=== PATIENT | female | born 1945 | race African-American/Black ===

== ENCOUNTER 2016-11-19 10:07 | Day surgery (SDC) | payer OTHER ==
[2016-11-15 09:40] VITALS: BMI 37.3
[2016-11-19] MEDS ORDERED: PROPOFOL 20 ML ONE ×2 (10:34)
[2016-11-19] MEDS ORDERED: GLYCOPYRROLATE 0.2 MG/1 ML VIAL ONE (11:05)
[2016-11-19 12:03] VITALS: TEMP 98
[2016-11-19 12:48] VITALS: BP 140/72; PULSE 66
--- NOTE | 2016-11-20 16:20 | PATH ---
Surgical Pathology Report Patient Name: CECILIA GALEAS [facility]. Rec. #: [id number] /Age/Gender: 1945 (Age: 71) / F Account: [id number] Location: [facility] [place]ENDOSCOPY Taken: 11/19/2016 Received: 11/19/2016 Reported: 11/20/2016 Physicians: Eugene Wiseman M.D. Specimen(s) Received A: BX DUODENUM B: BX ANTRUM C: BX RECTUM Clinical History GI bleed Duodenitis, gastritis, colonic polyp Final Diagnosis A. DUODENUM, BIOPSY: DUODENAL MUCOSA WITH NO PATHOLOGIC FINDINGS. B. ANTRUM, BIOPSY: SEVERE CHRONIC ACTIVE GASTRITIS. IMMUNOSTAIN SHOWS NUMEROUS H. PYLORI ORGANISMS. C. RECTUM, BIOPSY: HYPERPLASTIC POLYP. Electronically Signed Candi Pardo M.D. Gross Description A. Received in formalin, labeled "duodenum" are 2 garcia, irregular portions of soft tissue measuring 0.1 and 0.4 cm. in greatest dimension. The specimens are submitted in toto in one cassette. B. Received in formalin, labeled "antrum" are 2 garcia, irregular portions of soft tissue averaging 0.4 cm. in greatest dimension. The specimens are submitted in toto in one cassette. C. Received in formalin, labeled "rectum" is a garcia, irregular portion of soft tissue measuring 0.3 cm. in greatest dimension. The specimen is submitted in toto in one cassette. 11/19/2016 saudi11/19/2016
== END 2016-11-19 12:30 | disposition home or self-care (01) ==
LOC: FASU-ENDO 10:07
PROVIDERS: ATTEND Internal Medicine Gastroenterology
PROC: 0DB68ZX Excision of Stomach, Via Natural or Artificial Opening Endoscopic, Diagnostic (ICD-10-PCS; 2016-11-19)
PROC: 0DBP8ZX Excision of Rectum, Via Natural or Artificial Opening Endoscopic, Diagnostic (ICD-10-PCS; principal; 2016-11-19 11:02)
PROC: 0DB98ZX Excision of Duodenum, Via Natural or Artificial Opening Endoscopic, Diagnostic (ICD-10-PCS; 2016-11-19 11:02)
DX: K92.1 Melena (principal); K62.1 Rectal polyp; K57.30 Diverticulosis of large intestine without perforation or abscess without bleeding; K29.80 Duodenitis without bleeding; K29.30 Chronic superficial gastritis without bleeding
CPT/HCPCS: 88305-TC; 88342-TC